=== PATIENT | male | born 1945 | race Asian ===

== ENCOUNTER 2021-11-24 11:24 | Inpatient (IN) | payer MEDICARE, SELFPAY ==
[2021-11-24] VITALS (10 sets, daily range): BP systolic 104–152
[~2021-11-24] VITALS: Ht 165.1 cm; Wt 62.7 kg
[2021-11-24] MEDS ORDERED: NACL 0.9% 1,000 ML IV ONE ×2 (12:00→13:30)
[2021-11-24 12:39] LABS: BASOPHILS % (AUTO) 0.1 % (0.0-2.0); LYMPHOCYTES # (AUTO) 0.7 K/uL (1.0-5.5); LYMPHOCYTES % (AUTO) 3.1 % (20.5-51.5); MEAN CORPUSCULAR HEMOGLOBIN 30 pg (27-31); MEAN CORPUSCULAR HGB CONC 31 % (32-36); MEAN CORPUSCULAR VOLUME 98 fL (79.0-98.0); MONOCYTES # (AUTO) 1.4 K/uL (0.0-1.0); MONOCYTES % (AUTO) 6.3 % (1.7-9.3); NEUTROPHILS # (AUTO) 19.9 K/uL (1.8-7.7); NEUTROPHILS % (AUTO) 90.5 % (40.0-70.0); PLATELET COUNT (AUTO) 199 K/uL (130-430); RED CELL DISTRIBUTION WIDTH 14.7 % (9.0-15.0)
[2021-11-24 12:56] LABS: ANION GAP 15 (5-15); CALCIUM 8.6 mg/dL (8.4-11.0); CHLORIDE 109 mmol/L (98-107); GLUCOSE 310 mg/dL (70-99); POTASSIUM 4.7 mmol/L (3.5-5.1); SODIUM SERUM 145 mmol/L (136-145); UREA NITROGEN, BLOOD 92 mg/dL (8-21)
[2021-11-24 12:59] LABS: BILIRUBIN,URINE NEGATIVE (NEGATIVE); CLARITY/URINE CLEAR (CLEAR); COLOR,URINE YELLOW (YELLOW); GLUCOSE,URINE 2+ (NEGATIVE); KETONES,URINE NEGATIVE (NEGATIVE); LEUKOCYTE ESTERASE ,URINE 3+ (NEGATIVE); NITRITE, URINE POSITIVE (NEGATIVE); PH,URINE 6.5 (5.0-8.0); PROTEIN URINE NEGATIVE (NEGATIVE); UROBILINOGEN,URINE 0.2 (0.2-1.0)
[2021-11-24 13:00] LABS: HEMATOCRIT 16.6 % (36-54); HEMOGLOBIN 5.1 g/dL (14.0-18.0); INR 1.2 (0.80-1.20); PROTHROMBIN TIME 12.7 SECS (9.5-12.5)
[2021-11-24 13:05] LABS: ALANINE AMINOTRANSFERASE 19 U/L (12-78); ALBUMIN 2.9 g/dL (3.4-4.8); ASPARTATE AMINOTRANSFERASE 13 U/L (10-37); TOTAL BILIRUBIN 0.2 mg/dL (0.0-1.0)
[2021-11-24 13:29] LABS: BLOOD, URINE TRACE (NEGATIVE)
[2021-11-24 13:34] LABS: BACTERIA,URINE FEW /HPF (None Seen)
[2021-11-24] MEDS ORDERED: PANTOPRAZOLE SODIUM 80 MG in NS 100 ML IV ONE (14:00)
[2021-11-24] MEDS ORDERED: PANTOPRAZOLE SODIUM 40 MG in NS 50 ML IV ONE (14:00)
[2021-11-24] MEDS ORDERED: PIPERACILLIN/TAZO 3.375 GM in NS 50 ML IV ONE (14:15)
[2021-11-24] MEDS ORDERED: 0.45% NS 500 ML IV ONE (17:15)
[2021-11-24] MEDS ORDERED: DEXTROSE 50% JECT 50 ML DISP.SYRIN IVP PRN (17:15)
[2021-11-24] MEDS ORDERED: DILTIAZEM HCL 30 MG TABLET PO ONE (17:15)
[2021-11-24] MEDS ORDERED: INSULIN REGULAR, HUMAN 100 UNITS/ML, 10 ML VIAL (humuLIN R) SUBCUT PRN (17:15)
[2021-11-24 18:03] LABS: TOTAL IRON BIND. CAPACITY 307 ug/dL (250-450)
[2021-11-24] MEDS: PIPERACILLIN/TAZO 2.25G/DEX-IS 50 ML IV SCH (18:11)
[2021-11-24] MEDS: SUCRALFATE 1 GM/10 ML UDC GT SCH (21:00)
[2021-11-24] MEDS ORDERED: PANTOPRAZOLE SODIUM 40 MG/VIAL (PROTONIX) ONE ×2 (21:45→22:32)
[2021-11-24] MEDS: PANTOPRAZOLE SODIUM 40 MG in NS 50 ML IV SCH (23:00)
[2021-11-25] VITALS (21 sets, daily range): BP systolic 102–128
[2021-11-25] MEDS: PIPERACILLIN/TAZO 2.25G/DEX-IS 50 ML IV SCH ×5 (01:12→23:32)
[2021-11-25] MEDS: PANTOPRAZOLE SODIUM 40 MG in NS 50 ML IV SCH ×5 (01:35→21:23)
[2021-11-25] MEDS: DILTIAZEM HCL 30 MG TABLET PO SCH ×5 (05:39→23:32)
[2021-11-25] MEDS: SUCRALFATE 1 GM/10 ML UDC GT SCH ×4 (06:06→20:08)
[2021-11-25] MEDS ORDERED: NS 500 ML IV ONE (08:30)
[2021-11-25] MEDS: NACL 0.9% 1,000 ML IV SCH ×2 (09:14→18:54)
[2021-11-25 09:51] LABS: BASOPHILS % (AUTO) 0.2 % (0.0-2.0); LYMPHOCYTES # (AUTO) 1.2 K/uL (1.0-5.5); LYMPHOCYTES % (AUTO) 6.9 % (20.5-51.5); MEAN CORPUSCULAR HEMOGLOBIN 31 pg (27-31); MEAN CORPUSCULAR HGB CONC 32 % (32-36); MEAN CORPUSCULAR VOLUME 95 fL (79.0-98.0); MONOCYTES # (AUTO) 1.5 K/uL (0.0-1.0); MONOCYTES % (AUTO) 8.8 % (1.7-9.3); NEUTROPHILS # (AUTO) 14.3 K/uL (1.8-7.7); NEUTROPHILS % (AUTO) 84.1 % (40.0-70.0); PLATELET COUNT (AUTO) 131 K/uL (130-430); RED BLOOD CELL COUNT(AUTO) 2.03 MIL/uL (4.2-6.2); RED CELL DISTRIBUTION WIDTH 13.9 % (9.0-15.0)
[2021-11-25 09:58] LABS: ALANINE AMINOTRANSFERASE 23 U/L (12-78); ALBUMIN 2.7 g/dL (3.4-4.8); ANION GAP 10 (5-15); ASPARTATE AMINOTRANSFERASE 17 U/L (10-37); CALCIUM 7.9 mg/dL (8.4-11.0); CHLORIDE 115 mmol/L (98-107); CREATININE 1.56 mg/dL (0.55-1.30); FREE T4 (FREE THYROXINE) 0.9 ng/dl (0.8-1.5); GLUCOSE 136 mg/dL (70-99); PHOSPHORUS 2.6 mg/dL (2.7-4.5); POTASSIUM 3.8 mmol/L (3.5-5.1); SODIUM SERUM 151 mmol/L (136-145); THYROID STIMULATING HORMONE 2.58 uIu/mL (0.36-3.74); TOTAL BILIRUBIN 0.5 mg/dL (0.0-1.0); UREA NITROGEN, BLOOD 61 mg/dL (8-21)
[2021-11-25 11:24] LABS: HEMOGLOBIN 6.3 g/dL (14.0-18.0)
[2021-11-25 11:25] LABS: HEMATOCRIT 19.4 % (36-54)
[2021-11-25] MEDS ORDERED: IPRATROPIUM/ALBUTEROL SULFATE 3 ML AMPUL.NEB (DUONEB) ONE (13:08)
[2021-11-25] MEDS ORDERED: D5W 500 ML IV ONE (14:30)
[2021-11-25] MEDS ORDERED: LOPERAMIDE HCL 1 MG/7.5 ML LIQUID UDC GT ONE (15:00)
[2021-11-25] MEDS: IPRATROPIUM/ALBUTEROL SULFATE 3 ML AMPUL.NEB (DUONEB) INH SCH ×4 (15:00→23:00)
[2021-11-25] MEDS ORDERED: LOPERAMIDE HCL 1 MG/7.5 ML LIQUID UDC GT PRN (15:00)
[2021-11-25] MEDS ORDERED: ERGOCALCIFEROL 8000 UNITS/ML ORAL SOLUTION, 60 ML BOTTLE PO ONE (15:00)
[2021-11-25] MEDS ORDERED: LOPERAMIDE HCL 2 MG CAPSULE GT ONE (15:15)
[2021-11-25] MEDS ORDERED: LOPERAMIDE HCL 2 MG CAPSULE GT PRN (15:15)
[2021-11-25] MEDS ORDERED: LOPERAMIDE HCL 2 MG CAPSULE PO ONE (15:15)
[2021-11-25] MEDS ORDERED: CALCIUM GLUCONATE 1 GM in NS 100 ML IV ONE (15:30)
[2021-11-25] MEDS ORDERED: DIPHENHYDRAMINE INJ 50 MG/ML VIAL ONE (16:39)
[2021-11-25] MEDS ORDERED: QUEtiapine FUMARATE 25 MG TABLET GT ONE (16:45)
[2021-11-25] MEDS ORDERED: DIPHENHYDRAMINE INJ 50 MG/ML VIAL IVP PRN (16:45)
[2021-11-25] MEDS: QUEtiapine FUMARATE 25 MG TABLET GT SCH (20:08)
[2021-11-26] VITALS (19 sets, daily range): BP systolic 100–147
[2021-11-26] MEDS: PANTOPRAZOLE SODIUM 40 MG in NS 50 ML IV SCH (02:07)
[2021-11-26] MEDS: IPRATROPIUM/ALBUTEROL SULFATE 3 ML AMPUL.NEB (DUONEB) INH SCH ×6 (04:10→22:49)
[2021-11-26 04:54] LABS: BASOPHILS % (AUTO) 0.2 % (0.0-2.0); EOSINOPHILS # (AUTO) 0.1 K/uL (0.0-0.4); EOSINOPHILS % (AUTO) 0.8 % (0.0-4.0); HEMATOCRIT 27.4 % (36-54); HEMOGLOBIN 9.2 g/dL (14.0-18.0); LYMPHOCYTES # (AUTO) 0.5 K/uL (1.0-5.5); LYMPHOCYTES % (AUTO) 4.8 % (20.5-51.5); MEAN CORPUSCULAR HEMOGLOBIN 31 pg (27-31); MEAN CORPUSCULAR HGB CONC 33 % (32-36); MEAN CORPUSCULAR VOLUME 91 fL (79.0-98.0); MONOCYTES # (AUTO) 0.7 K/uL (0.0-1.0); MONOCYTES % (AUTO) 6.5 % (1.7-9.3); NEUTROPHILS % (AUTO) 87.7 % (40.0-70.0); PLATELET COUNT (AUTO) 116 K/uL (130-430); RED BLOOD CELL COUNT(AUTO) 3.01 MIL/uL (4.2-6.2); RED CELL DISTRIBUTION WIDTH 14.5 % (9.0-15.0); WHITE BLOOD COUNT (AUTO) 10.3 K/uL (4.8-10.8)
[2021-11-26] MEDS: PIPERACILLIN/TAZO 2.25G/DEX-IS 50 ML IV SCH ×3 (05:24→17:44)
[2021-11-26 05:29] LABS: ALANINE AMINOTRANSFERASE 23 U/L (12-78); ALBUMIN 2.4 g/dL (3.4-4.8); ANION GAP 10 (5-15); ASPARTATE AMINOTRANSFERASE 26 U/L (10-37); CALCIUM 7.6 mg/dL (8.4-11.0); CHLORIDE 116 mmol/L (98-107); CREATININE 1.23 mg/dL (0.55-1.30); GLUCOSE 128 mg/dL (70-99); POTASSIUM 3.7 mmol/L (3.5-5.1); SODIUM SERUM 149 mmol/L (136-145); TOTAL BILIRUBIN 0.7 mg/dL (0.0-1.0); UREA NITROGEN, BLOOD 35 mg/dL (8-21)
[2021-11-26] MEDS: DILTIAZEM HCL 30 MG TABLET PO SCH ×3 (05:30→17:45)
[2021-11-26] MEDS: NACL 0.9% 1,000 ML IV SCH ×2 (05:40→14:53)
[2021-11-26] MEDS: SUCRALFATE 1 GM/10 ML UDC GT SCH ×4 (05:40→20:31)
[2021-11-26] MEDS ORDERED: MIDAZOLAM HCL 5 MG/5 ML VIAL ONE (09:47)
[2021-11-26] MEDS ORDERED: fentaNYL CITRATE/PF 100 MCG/2 ML AMP ONE (09:47)
[2021-11-26] MEDS ORDERED: fentaNYL CITRATE/PF 100 MCG/2 ML AMP IVP ONE (09:56)
[2021-11-26] MEDS ORDERED: MIDAZOLAM HCL 5 MG/5 ML VIAL IVP ONE (09:56)
[2021-11-26] MEDS ORDERED: SIMETHICONE 80 MG TAB.CHEW PO ONE (09:56)
[2021-11-26] MEDS: QUEtiapine FUMARATE 25 MG TABLET GT SCH ×2 (10:16→20:31)
[2021-11-26] MEDS: ERGOCALCIFEROL 8000 UNITS/ML ORAL SOLUTION, 60 ML BOTTLE PO SCH (10:17)
[2021-11-26] MEDS: DILTIAZEM HCL 30 MG TABLET GT SCH (18:35)
[2021-11-26] MEDS: KCL 20 mEq in D5W 1000 mL 1,000 ML IV SCH (18:39)
[2021-11-26] MEDS: PANTOPRAZOLE SODIUM 40 MG/VIAL (PROTONIX) IVP SCH (20:31)
[2021-11-27 00:50] VITALS: BP_SYST 144
[2021-11-27] MEDS: PIPERACILLIN/TAZO 2.25G/DEX-IS 50 ML IV SCH ×3 (02:01→11:05)
[2021-11-27] MEDS: DILTIAZEM HCL 30 MG TABLET GT SCH ×3 (02:56→17:43)
[2021-11-27] MEDS: IPRATROPIUM/ALBUTEROL SULFATE 3 ML AMPUL.NEB (DUONEB) INH SCH ×5 (03:22→23:11)
[2021-11-27] MEDS: SUCRALFATE 1 GM/10 ML UDC GT SCH ×4 (06:01→22:33)
[2021-11-27 07:39] LABS: ALANINE AMINOTRANSFERASE 21 U/L (12-78); ALBUMIN 2.6 g/dL (3.4-4.8); ANION GAP 11 (5-15); ASPARTATE AMINOTRANSFERASE 28 U/L (10-37); BASOPHILS % (AUTO) 0.1 % (0.0-2.0); CALCIUM 7.9 mg/dL (8.4-11.0); CHLORIDE 112 mmol/L (98-107); CREATININE 1.31 mg/dL (0.55-1.30); EOSINOPHILS # (AUTO) 0.1 K/uL (0.0-0.4); EOSINOPHILS % (AUTO) 1.6 % (0.0-4.0); GLUCOSE 119 mg/dL (70-99); HEMATOCRIT 30.4 % (36-54); HEMOGLOBIN 10.1 g/dL (14.0-18.0); LYMPHOCYTES # (AUTO) 0.5 K/uL (1.0-5.5); LYMPHOCYTES % (AUTO) 5.2 % (20.5-51.5); MEAN CORPUSCULAR HEMOGLOBIN 31 pg (27-31); MEAN CORPUSCULAR HGB CONC 33 % (32-36); MONOCYTES # (AUTO) 0.6 K/uL (0.0-1.0); MONOCYTES % (AUTO) 6.7 % (1.7-9.3); NEUTROPHILS # (AUTO) 8.3 K/uL (1.8-7.7); NEUTROPHILS % (AUTO) 86.4 % (40.0-70.0); PLATELET COUNT (AUTO) 121 K/uL (130-430); POTASSIUM 3.8 mmol/L (3.5-5.1); RED BLOOD CELL COUNT(AUTO) 3.29 MIL/uL (4.2-6.2); RED CELL DISTRIBUTION WIDTH 15.4 % (9.0-15.0); SODIUM SERUM 147 mmol/L (136-145); TOTAL BILIRUBIN 0.8 mg/dL (0.0-1.0); UREA NITROGEN, BLOOD 21 mg/dL (8-21); WHITE BLOOD COUNT (AUTO) 9.6 K/uL (4.8-10.8)
[2021-11-27 07:56] VITALS: BP_SYST 121
[2021-11-27] MEDS: QUEtiapine FUMARATE 25 MG TABLET GT SCH ×2 (08:34→21:00)
[2021-11-27] MEDS: PANTOPRAZOLE SODIUM 40 MG/VIAL (PROTONIX) IVP SCH (08:34)
[2021-11-27] MEDS: ERGOCALCIFEROL 8000 UNITS/ML ORAL SOLUTION, 60 ML BOTTLE PO SCH (08:35)
[2021-11-27 08:58] LABS: MEAN CORPUSCULAR VOLUME 93 fL (79.0-98.0)
[2021-11-27 11:09] VITALS: BP_SYST 106
[2021-11-27] MEDS: cefTRIAXone 1 GM in D5W 50 ML IV SCH (16:14)
[2021-11-27] MEDS: KCL 20 mEq in D5W 1000 mL 1,000 ML IV SCH (16:15)
[2021-11-27 16:30] VITALS: BP_SYST 109
[2021-11-27] MEDS ORDERED: IPRA3AMP9 INH (17:13)
[2021-11-27] MEDS ORDERED: CAR30 GT (17:13)
[2021-11-27] MEDS ORDERED: CEPH125S PO (17:13)
[2021-11-27] MEDS ORDERED: SUCR1ORA4 GT (17:13)
[2021-11-27] MEDS ORDERED: PANT40SU2 GT (17:18)
[2021-11-27] MEDS: SOD FERRIC GLUC COMPLEX/SUC 125 MG in NS 100 ML IV SCH (18:08)
[2021-11-27] MEDS ORDERED: PANTOPRAZOLE GRANULES PACKET 40 MG GT SCH (21:00)
[2021-11-27] MEDS: LANSOPRAZOLE 30 MG CAPSULE.DR GT SCH (22:33)
[2021-11-28 01:00] VITALS: BP_SYST 129
[2021-11-28] MEDS: DILTIAZEM HCL 30 MG TABLET GT SCH ×3 (02:15→18:03)
[2021-11-28] MEDS: KCL 20 mEq in D5W 1000 mL 1,000 ML IV SCH (06:50)
[2021-11-28 06:53] LABS: BASOPHILS % (AUTO) 0.2 % (0.0-2.0); EOSINOPHILS # (AUTO) 0.3 K/uL (0.0-0.4); EOSINOPHILS % (AUTO) 2.9 % (0.0-4.0); HEMATOCRIT 32.3 % (36-54); HEMOGLOBIN 10.7 g/dL (14.0-18.0); LYMPHOCYTES # (AUTO) 0.5 K/uL (1.0-5.5); LYMPHOCYTES % (AUTO) 5.4 % (20.5-51.5); MEAN CORPUSCULAR HEMOGLOBIN 31 pg (27-31); MEAN CORPUSCULAR HGB CONC 33 % (32-36); MEAN CORPUSCULAR VOLUME 93 fL (79.0-98.0); MONOCYTES # (AUTO) 0.5 K/uL (0.0-1.0); MONOCYTES % (AUTO) 5.9 % (1.7-9.3); NEUTROPHILS # (AUTO) 7.9 K/uL (1.8-7.7); NEUTROPHILS % (AUTO) 85.6 % (40.0-70.0); PLATELET COUNT (AUTO) 135 K/uL (130-430); RED BLOOD CELL COUNT(AUTO) 3.49 MIL/uL (4.2-6.2); RED CELL DISTRIBUTION WIDTH 15.1 % (9.0-15.0); WHITE BLOOD COUNT (AUTO) 9.3 K/uL (4.8-10.8)
[2021-11-28 07:29] LABS: ALANINE AMINOTRANSFERASE 19 U/L (12-78); ALBUMIN 2.7 g/dL (3.4-4.8); ANION GAP 10 (5-15); ASPARTATE AMINOTRANSFERASE 30 U/L (10-37); CALCIUM 8.1 mg/dL (8.4-11.0); CHLORIDE 109 mmol/L (98-107); CREATININE 1.25 mg/dL (0.55-1.30); GLUCOSE 97 mg/dL (70-99); POTASSIUM 3.4 mmol/L (3.5-5.1); SODIUM SERUM 145 mmol/L (136-145); TOTAL BILIRUBIN 0.5 mg/dL (0.0-1.0); UREA NITROGEN, BLOOD 15 mg/dL (8-21)
[2021-11-28] MEDS: IPRATROPIUM/ALBUTEROL SULFATE 3 ML AMPUL.NEB (DUONEB) INH SCH ×2 (07:56→15:23)
[2021-11-28] MEDS: SUCRALFATE 1 GM/10 ML UDC GT SCH ×4 (08:32→23:56)
[2021-11-28] MEDS: QUEtiapine FUMARATE 25 MG TABLET GT SCH ×2 (08:32→23:57)
[2021-11-28] MEDS: LANSOPRAZOLE 30 MG CAPSULE.DR GT SCH ×2 (08:32→23:57)
[2021-11-28] MEDS: ERGOCALCIFEROL 8000 UNITS/ML ORAL SOLUTION, 60 ML BOTTLE PO SCH (08:33)
[2021-11-28] MEDS ORDERED: FOLIC ACID 1 MG TABLET GT ONE (11:15)
[2021-11-28 12:35] VITALS: BP_SYST 127
[2021-11-28] MEDS ORDERED: POTASSIUM CHLORIDE 20 MEQ/PKT PACKET GT ONE (13:30)
[2021-11-28 15:25] VITALS: BP_SYST 127
[2021-11-28 16:00] VITALS: BP_SYST 119
[2021-11-28] MEDS: cefTRIAXone 1 GM in D5W 50 ML IV SCH (16:22)
[2021-11-28] MEDS: SOD FERRIC GLUC COMPLEX/SUC 125 MG in NS 100 ML IV SCH (18:04)
[2021-11-28] MEDS ORDERED: METR-154 GT (18:56)
[2021-11-28] MEDS ORDERED: DOXY100C GT (18:58)
[2021-11-28 20:00] VITALS: BP_SYST 122
[2021-11-28] MEDS: POTASSIUM CHLORIDE 20 MEQ/PKT PACKET PO SCH (23:57)
[2021-11-29 01:26] VITALS: BP_SYST 128
[2021-11-29] MEDS: IPRATROPIUM/ALBUTEROL SULFATE 3 ML AMPUL.NEB (DUONEB) INH SCH ×2 (01:46→08:03)
[2021-11-29] MEDS: DILTIAZEM HCL 30 MG TABLET GT SCH ×2 (05:04→10:12)
[2021-11-29] MEDS: SUCRALFATE 1 GM/10 ML UDC GT SCH ×2 (08:01→11:13)
[2021-11-29 08:12] LABS: BASOPHILS % (AUTO) 0.1 % (0.0-2.0); EOSINOPHILS # (AUTO) 0.2 K/uL (0.0-0.4); EOSINOPHILS % (AUTO) 2.9 % (0.0-4.0); HEMATOCRIT 34.5 % (36-54); HEMOGLOBIN 11.3 g/dL (14.0-18.0); LYMPHOCYTES # (AUTO) 0.6 K/uL (1.0-5.5); LYMPHOCYTES % (AUTO) 9.8 % (20.5-51.5); MEAN CORPUSCULAR HEMOGLOBIN 30 pg (27-31); MEAN CORPUSCULAR HGB CONC 33 % (32-36); MEAN CORPUSCULAR VOLUME 92 fL (79.0-98.0); MONOCYTES # (AUTO) 0.4 K/uL (0.0-1.0); MONOCYTES % (AUTO) 6.4 % (1.7-9.3); NEUTROPHILS # (AUTO) 5.2 K/uL (1.8-7.7); NEUTROPHILS % (AUTO) 80.8 % (40.0-70.0); PLATELET COUNT (AUTO) 137 K/uL (130-430); RED BLOOD CELL COUNT(AUTO) 3.74 MIL/uL (4.2-6.2); RED CELL DISTRIBUTION WIDTH 14.8 % (9.0-15.0); WHITE BLOOD COUNT (AUTO) 6.4 K/uL (4.8-10.8)
[2021-11-29 08:30] LABS: ANION GAP 11 (5-15); CALCIUM 8.7 mg/dL (8.4-11.0); CHLORIDE 107 mmol/L (98-107); CREATININE 1.23 mg/dL (0.55-1.30); GLUCOSE 86 mg/dL (70-99); POTASSIUM 3.9 mmol/L (3.5-5.1); SODIUM SERUM 142 mmol/L (136-145); UREA NITROGEN, BLOOD 16 mg/dL (8-21)
[2021-11-29] MEDS ORDERED: DOXYCYCLINE HYCLATE 100 MG CAPSULE PO SCH (09:00)
[2021-11-29] MEDS ORDERED: FOLIC ACID 1 MG TABLET GT SCH (09:00)
[2021-11-29] MEDS: LANSOPRAZOLE 30 MG CAPSULE.DR GT SCH (09:00)
[2021-11-29] MEDS ORDERED: metroNIDAZOLE 500 MG TABLET PO SCH (09:00)
[2021-11-29] MEDS ORDERED: BISMUTH SUBSALICYLATE 240 ML BOTTLE PO SCH (09:00)
[2021-11-29] MEDS ORDERED: PANTOPRAZOLE SODIUM 40 MG TAB PO SCH (09:00)
[2021-11-29 09:30] VITALS: BP_SYST 163
[2021-11-29] MEDS: QUEtiapine FUMARATE 25 MG TABLET GT SCH (09:59)
[2021-11-29] MEDS: POTASSIUM CHLORIDE 20 MEQ/PKT PACKET PO SCH (09:59)
[2021-11-29] MEDS: ERGOCALCIFEROL 8000 UNITS/ML ORAL SOLUTION, 60 ML BOTTLE PO SCH (10:00)
[2021-11-29 11:50] VITALS: BP_SYST 125
== END 2021-11-29 13:15 | disposition home health service (06) | DRG 871 ==
LOC: SED 11:24 → STU 14:01 → SIC 16:01 → STU 11-26 21:55 → SMU 11-27 14:50
PROVIDERS: ADMIT Internal Medicine; ATTEND Internal Medicine
PROC: 30233N1 Transfusion of Nonautologous Red Blood Cells into Peripheral Vein, Percutaneous Approach (ICD-10-PCS; 2021-11-24)
PROC: 30233K1 Transfusion of Nonautologous Frozen Plasma into Peripheral Vein, Percutaneous Approach (ICD-10-PCS; 2021-11-25)
PROC: 0DB78ZX Excision of Stomach, Pylorus, Via Natural or Artificial Opening Endoscopic, Diagnostic (ICD-10-PCS; principal; 2021-11-26 11:30)
DX: A41.9 Sepsis, unspecified organism (principal); R65.21 Severe sepsis with septic shock; R57.1 Hypovolemic shock; E43 Unspecified severe protein-calorie malnutrition; K26.4 Chronic or unspecified duodenal ulcer with hemorrhage; K29.71 Gastritis, unspecified, with bleeding; D62 Acute posthemorrhagic anemia; N17.9 Acute kidney failure, unspecified; I48.20 Chronic atrial fibrillation, unspecified; E87.0 Hyperosmolality and hypernatremia; N39.0 Urinary tract infection, site not specified; R47.01 Aphasia; C76.0 Malignant neoplasm of head, face and neck; E11.9 Type 2 diabetes mellitus without complications; J45.909 Unspecified asthma, uncomplicated; E83.39 Other disorders of phosphorus metabolism; Z20.822 Contact with and (suspected) exposure to COVID-19; E83.51 Hypocalcemia; K31.9 Disease of stomach and duodenum, unspecified; Z86.73 Personal history of transient ischemic attack (TIA), and cerebral infarction without residual deficits; Z87.891 Personal history of nicotine dependence; Z93.1 Gastrostomy status; Z79.01 Long term (current) use of anticoagulants; Z68.23 Body mass index [BMI] 23.0-23.9, adult
CPT/HCPCS: 36415; 36430; 43239; 71045; 80048; 80053; 81000; 82272; 82607; 82728; 82746; 82962; 83540; 83550; 83605; 83880; 84100; 84439; 84443; 84484; 85025; 85610-TC; 85730-TC; 86886; 86900; 86901; 86920; 87040; 87086; 88305; 88312; 88313; 93005; 93306; 94640; 94760; 96360; 99285; C9113; G0378; J0610; J0696; J1200; J2250; J2543; J2916; J3010; J3480; J7060; P9021; P9059

== ENCOUNTER 2022-06-23 04:22 | Emergency (ER) | payer MEDICARE ==
[~2022-06-23] VITALS: Ht 162.6 cm; Wt 49.9 kg
[~2022-06-23 04:22] MED LIST: CAR30 GT; CEPH125S PO; DOXY100C GT; IPRA3AMP9 INH; METR-154 GT; PANT40SU2 GT; SUCR1ORA4 GT
[2022-06-23 05:29] VITALS: BP_SYST 143
[2022-06-23] MEDS ORDERED: PANTOPRAZOLE SODIUM 80 MG in NS 100 ML IV ONE (05:45)
[2022-06-23 05:46] LABS: ANION GAP 6 (5-15); CALCIUM 9.3 mg/dL (8.4-11.0); CHLORIDE 107 mmol/L (98-107); CREATININE 1.72 mg/dL (0.55-1.30); GLUCOSE 105 mg/dL (70-99); POTASSIUM 4.3 mmol/L (3.5-5.1); UREA NITROGEN, BLOOD 33 mg/dL (8-21)
[2022-06-23] MEDS ORDERED: PANTOPRAZOLE SODIUM 40 MG/VIAL (PROTONIX) ONE (05:53)
[2022-06-23 05:55] LABS: ALANINE AMINOTRANSFERASE 41 U/L (12-78); ALBUMIN 3.6 g/dL (3.4-4.8); ASPARTATE AMINOTRANSFERASE 31 U/L (10-37); TOTAL BILIRUBIN 0.8 mg/dL (0.0-1.0)
[2022-06-23 05:56] LABS: BASOPHILS # (AUTO) 0.1 K/uL (0.0-0.2); BASOPHILS % (AUTO) 2.4 % (0.0-2.0); EOSINOPHILS # (AUTO) 0.4 K/uL (0.0-0.4); EOSINOPHILS % (AUTO) 6.9 % (0.0-4.0); HEMATOCRIT 41.1 % (36-54); LYMPHOCYTES # (AUTO) 0.8 K/uL (1.0-5.5); LYMPHOCYTES % (AUTO) 14.7 % (20.5-51.5); MEAN CORPUSCULAR VOLUME 92 fL (79.0-98.0); MONOCYTES # (AUTO) 0.3 K/uL (0.0-1.0); MONOCYTES % (AUTO) 6.8 % (1.7-9.3); NEUTROPHILS # (AUTO) 3.5 K/uL (1.8-7.7); NEUTROPHILS % (AUTO) 69.2 % (40.0-70.0); PLATELET COUNT (AUTO) 133 K/uL (130-430); RED BLOOD CELL COUNT(AUTO) 4.45 MIL/uL (4.2-6.2); RED CELL DISTRIBUTION WIDTH 14.4 % (9.0-15.0); WHITE BLOOD COUNT (AUTO) 5.1 K/uL (4.8-10.8)
[2022-06-23 06:07] LABS: INR 1.1 (0.80-1.20); PROTHROMBIN TIME 11.1 SECS (9.5-12.5)
[2022-06-23] MEDS ORDERED: NS 500 ML IV ONE (06:30)
[2022-06-23] MEDS ORDERED: NACL 0.9% 1,000 ML IV ONE ×2 (07:15)
[2022-06-23 08:31] VITALS: BP_SYST 168
== END 2022-06-23 08:33 | disposition home or self-care (01) ==
LOC: SED 04:22
DX: N17.9 Acute kidney failure, unspecified (principal); Z79.01 Long term (current) use of anticoagulants; Z79.899 Other long term (current) drug therapy
CPT/HCPCS: 99284; 96365; 71045; 96361; 80053; 85025; 85610; 85730; 84484; 36415; C9113; J7030

== ENCOUNTER 2023-05-07 13:57 | Emergency (ER) | payer MEDICARE ==
[~2023-05-07] VITALS: Ht 170.2 cm; Wt 72.6 kg
[2023-05-07 14:00] VITALS: BP_SYST 114; PULSE 105; RESP 19; TEMP 98.6; O2SAT 97
[2023-05-07] MEDS ORDERED: NS 1000 ML IV.SOLN IV ONE (14:30)
[2023-05-07] MEDS ORDERED: VANCOMYCIN HCL 1,000 MG in NS 250 ML IV ONE (14:45)
[2023-05-07] MEDS ORDERED: PIPERACILLIN/TAZOBACTAM 2.25 GM in NS 50 ML IV ONE (14:45)
[2023-05-07 15:12] LABS: BASOPHILS % (AUTO) 0.1 % (0.0-2.0); EOSINOPHILS % (AUTO) 0.2 % (0.0-4.0); HEMOGLOBIN 11.4 g/dL (14.0-18.0); LYMPHOCYTES # (AUTO) 0.5 K/uL (1.0-5.5); LYMPHOCYTES % (AUTO) 4.7 % (20.5-51.5); MEAN CORPUSCULAR HEMOGLOBIN 29 pg (27-31); MEAN CORPUSCULAR HGB CONC 32 % (32-36); MEAN CORPUSCULAR VOLUME 92 fL (79.0-98.0); MONOCYTES # (AUTO) 0.5 K/uL (0.0-1.0); MONOCYTES % (AUTO) 5.3 % (1.7-9.3); NEUTROPHILS # (AUTO) 8.6 K/uL (1.8-7.7); NEUTROPHILS % (AUTO) 89.7 % (40.0-70.0); PLATELET COUNT (AUTO) 169 K/uL (130-430); RED BLOOD CELL COUNT(AUTO) 3.92 MIL/uL (4.2-6.2); RED CELL DISTRIBUTION WIDTH 13.8 % (9.0-15.0); WHITE BLOOD COUNT (AUTO) 9.6 K/uL (4.8-10.8)
[2023-05-07 15:23] LABS: ALANINE AMINOTRANSFERASE 17 U/L (12-78); ALBUMIN 2.2 g/dL (3.4-4.8); ANION GAP 7 (5-15); ASPARTATE AMINOTRANSFERASE 26 U/L (10-37); CALCIUM 7.8 mg/dL (8.4-11.0); CHLORIDE 108 mmol/L (98-107); CREATININE 2.31 mg/dL (0.55-1.30); GLUCOSE 165 mg/dL (74-106); TOTAL BILIRUBIN 0.2 mg/dL (0.0-1.0); UREA NITROGEN, BLOOD 44 mg/dL (8-21)
[2023-05-07 15:25] LABS: LIPASE 436 U/L (73-393)
[2023-05-07 15:38] LABS: INR 1.1 (0.80-1.20); PROTHROMBIN TIME 11.3 SECS (9.5-12.5)
[2023-05-07] MEDS ORDERED: NACL 0.9% 1,000 ML IV ONE (16:15)
[2023-05-07 17:47] LABS: BILIRUBIN,URINE NEGATIVE (NEGATIVE); BLOOD, URINE 3+ (NEGATIVE); CLARITY/URINE SL CLOUDY (CLEAR); GLUCOSE,URINE NEGATIVE (NEGATIVE); KETONES,URINE NEGATIVE (NEGATIVE); LEUKOCYTE ESTERASE ,URINE 1+ (NEGATIVE); NITRITE, URINE NEGATIVE (NEGATIVE); PROTEIN URINE TRACE (NEGATIVE); UROBILINOGEN,URINE 0.2 (0.2-1.0)
[2023-05-07 17:48] LABS: COLOR,URINE YELLOW (YELLOW)
[2023-05-07 18:00] LABS: BACTERIA,URINE FEW /HPF (None Seen); RBC,URINE >100 /HPF (0-3)
[2023-05-07 18:01] LABS: MUCUS,URINE None Seen /LPF (None Seen)
[2023-05-07] MEDS ORDERED: VANCOMYCIN HCL 1000 MG/VIAL IV ONE (18:07)
[2023-05-07] MEDS ORDERED: PIPERACILLIN/TAZOBACTAM 2.25 GM VIAL IV ONE (18:08)
[2023-05-08 00:40] VITALS: BP_SYST 137; PULSE 108; RESP 17; TEMP 97.7; O2SAT 98
== END 2023-05-08 00:30 | disposition short-term general hospital (02) ==
LOC: SED 13:57
DX: E86.0 Dehydration (principal); I95.9 Hypotension, unspecified; R65.20 Severe sepsis without septic shock; N17.9 Acute kidney failure, unspecified; I10 Essential (primary) hypertension; Z79.899 Other long term (current) drug therapy; Z20.822 Contact with and (suspected) exposure to COVID-19
CPT/HCPCS: 99291; 74176; 96365; 71045; 96361; 87426; 80053; 81000; 82962; 83690; 85025; 85610; 85730; 87040; 87086; 84484; 36415; 93005; 76376; 96368; 83605; 87804 ×2; J2543; J3370; J7030

== ENCOUNTER 2024-05-29 12:10 | Inpatient (IN) | payer MEDICARE ==
[~2024-05-29] VITALS: Ht 172.7 cm; Wt 71.2 kg
[2024-05-29 12:10] VITALS: BP_SYST 140; PULSE 154; RESP 24; TEMP 98; O2SAT 96; O2SAT 99
[2024-05-29] MEDS: IPRATROPIUM/ALBUTEROL SULFATE 3 ML AMPUL.NEB (DUONEB) INH ONE (12:28)
[2024-05-29] MEDS: dilTIAZem HCL IVP 5 MG/ML VIAL IVP ONE ×2 (12:41→16:27)
[2024-05-29] MEDS: DILTIAZEM HCL 60 MG TABLET PO ONE (12:55)
[2024-05-29 12:59] LABS: BASOPHILS % (AUTO) 0.3 % (0.0-2.0); EOSINOPHILS # (AUTO) 0.1 K/uL (0.0-0.4); EOSINOPHILS % (AUTO) 1.1 % (0.0-4.0); HEMOGLOBIN 11.5 g/dL (14.0-18.0); LYMPHOCYTES # (AUTO) 1.3 K/uL (1.0-5.5); MONOCYTES # (AUTO) 0.6 K/uL (0.0-1.0); NEUTROPHILS # (AUTO) 3.6 K/uL (1.8-7.7); WHITE BLOOD COUNT (AUTO) 5.6 K/uL (4.8-10.8)
[2024-05-29 13:01] LABS: HEMATOCRIT 35.9 % (36-54); LYMPHOCYTES % (AUTO) 23.4 % (20.5-51.5); MEAN CORPUSCULAR HEMOGLOBIN 31 pg (27-31); MEAN CORPUSCULAR HGB CONC 32 % (32-36); MEAN CORPUSCULAR VOLUME 96 fL (79.0-98.0); MONOCYTES % (AUTO) 10.6 % (1.7-9.3); NEUTROPHILS % (AUTO) 64.6 % (40.0-70.0); PLATELET COUNT (AUTO) 167 K/uL (130-430); RED BLOOD CELL COUNT(AUTO) 3.72 MIL/uL (4.2-6.2); RED CELL DISTRIBUTION WIDTH 15.4 % (9.0-15.0)
[2024-05-29 13:09] LABS: INR 1.1 (0.80-1.20); PROTHROMBIN TIME 11.6 SECS (9.5-12.5)
[2024-05-29 13:17] LABS: ALANINE AMINOTRANSFERASE 18 U/L (12-78); ALBUMIN 3.4 g/dL (3.4-4.8); ANION GAP 5 (5-15); ASPARTATE AMINOTRANSFERASE 18 U/L (10-37); BILIRUBIN,DIRECT 0.1 mg/dL (0.0-0.3); CALCIUM 8.4 mg/dL (8.4-11.0); CARBON DIOXIDE 30 mmol/L (23-29); CHLORIDE 105 mmol/L (98-107); CREATINE KINASE, TOTAL 67 U/L (39-308); CREATININE 2.03 mg/dL (0.55-1.30); GLUCOSE 208 mg/dL (74-106); POTASSIUM 4.4 mmol/L (3.5-5.1); SODIUM SERUM 140 mmol/L (136-145); TOTAL BILIRUBIN 0.3 mg/dL (0.0-1.0); TOTAL PROTEIN, SERUM 7.9 g/dL (6.4-8.3); UREA NITROGEN, BLOOD 36 mg/dL (8-21)
[2024-05-29] MEDS: NACL 0.9% 1,000 ML IV ONE ×2 (16:24→18:20)
[2024-05-29 16:40] VITALS: PULSE 117; O2SAT 98
[2024-05-29] MEDS ORDERED: ONDANSETRON HCL 4 MG/2 ML VIAL IVP PRN (16:45)
[2024-05-29] MEDS: DILTIAZEM HCL 30 MG TABLET GT SCH (16:45)
[2024-05-29] MEDS ORDERED: MORPHINE 2 MG/ML INJ. SYRINGE IVP PRN ×2 (16:45)
[2024-05-29] MEDS ORDERED: MUPIROCIN 2% TOPICAL OINTMENT 22 GM NS PRN (16:45)
[2024-05-29] MEDS ORDERED: MAGNESIUM SULFATE 50 ML IV PRN (16:45)
[2024-05-29] MEDS ORDERED: DOCUSATE SODIUM 100 MG CAPSULE PO PRN (16:45)
[2024-05-29] MEDS ORDERED: POTASSIUM CHLORIDE 20 MEQ TABLET.ER PO PRN (16:45)
[2024-05-29] MEDS ORDERED: ACETAMINOPHEN 325 MG TABLET PO PRN (16:45)
[2024-05-29] MEDS: NS 250 ML IV ONE (18:00)
[2024-05-29] MEDS: IPRATROPIUM/ALBUTEROL SULFATE 3 ML AMPUL.NEB (DUONEB) INH SCH (18:00)
[2024-05-29] MEDS ORDERED: cefTRIAXone 1 GM VIAL ONE (18:15)
[2024-05-29] MEDS: NACL 0.9% 1,000 ML IV SCH (18:19)
[2024-05-29] MEDS: ASPIRIN 81 MG TAB.CHEW PO ONE (18:20)
[2024-05-29] MEDS: cefTRIAXone 1 GM in D5W 50 ML IV SCH (18:20)
[2024-05-29] MEDS: HALOPERIDOL LACTATE 5 MG/ML VIAL IVP ONE (20:25)
[2024-05-29] MEDS: DIPHENHYDRAMINE INJ 50 MG/ML VIAL IVP ONE (20:37)
[2024-05-29] MEDS: HEPARIN SODIUM,PORCINE 5,000 UNITS/ML VIAL SUBCUT SCH (22:00)
[2024-05-30] VITALS (10 sets, daily range): BP systolic 96–127; PULSE 69–105; RESP 14–20; TEMP 97.4–99.3; O2SAT 91–100
[2024-05-30] MEDS ORDERED: APIX5TAB PO (08:56)
[2024-05-30] MEDS ORDERED: BISO5TAB15 PO (08:57)
[2024-05-30] MEDS ORDERED: ALLO300T2 PO (08:58)
[2024-05-30 08:59] LABS: HEMATOCRIT 37.6 % (36-54); MEAN CORPUSCULAR HEMOGLOBIN 31 pg (27-31); MEAN CORPUSCULAR HGB CONC 32 % (32-36); MEAN CORPUSCULAR VOLUME 97 fL (79.0-98.0); PLATELET COUNT (AUTO) 142 K/uL (130-430); RED CELL DISTRIBUTION WIDTH 15.4 % (9.0-15.0)
[2024-05-30 09:05] LABS: ALANINE AMINOTRANSFERASE 14 U/L (12-78); ALBUMIN 2.9 g/dL (3.4-4.8); ANION GAP 10 (5-15); ASPARTATE AMINOTRANSFERASE 24 U/L (10-37); CALCIUM 8.1 mg/dL (8.4-11.0); CARBON DIOXIDE 26 mmol/L (23-29); CHLORIDE 109 mmol/L (98-107); CREATININE 1.86 mg/dL (0.55-1.30); GLUCOSE 128 mg/dL (74-106); POTASSIUM 4.4 mmol/L (3.5-5.1); SODIUM SERUM 145 mmol/L (136-145); THYROID STIMULATING HORMONE 1.19 uIu/mL (0.34-4.82); TOTAL BILIRUBIN 0.4 mg/dL (0.0-1.0); UREA NITROGEN, BLOOD 34 mg/dL (8-21)
[2024-05-30 09:13] LABS: WHITE BLOOD COUNT (AUTO) 14.5 K/uL (4.8-10.8)
[2024-05-30] MEDS: ALLOPURINOL 300 MG TABLET (ZYLOPRIM) PO SCH (09:44)
[2024-05-30] MEDS: SUCRALFATE 1 GM TABLET PO SCH (09:44)
[2024-05-30 09:48] LABS: INR 1.2 (0.80-1.20); PROTHROMBIN TIME 12.1 SECS (9.5-12.5)
[2024-05-30] MEDS: METOPROLOL TARTRATE 25 MG TABLET PO SCH (09:51)
[2024-05-30] MEDS: APIXABAN 2.5 MG TABLET PO SCH (09:52)
[2024-05-30] MEDS ORDERED: TERA1CAP4 PO (10:29)
[2024-05-30 12:51] LABS: ATYPICAL LYMPHOCYTES % 0 % (0-0); BAND % (MANUAL) 40 % (0-6); BASOPHILS % (MANUAL) 0 % (0-2); EOSINOPHILS % (MANUAL) 0 % (0-7); HYPOCHROMASIA 1+; LYMPHOCYTES % (MANUAL) 5 % (20-46); MONOCYTES % (MANUAL) 6 % (0-11); PLATELET ESTIMATE ADEQUATE (ADEQUATE)
[2024-05-30] MEDS ORDERED: LACT-200 PO (13:00)
[2024-05-30] MEDS: AZITHROMYCIN 500 MG in NS 250 ML IV SCH (18:02)
[2024-05-30] MEDS: DECADRON 4 MG TABLET PO SCH (18:03)
[2024-05-30 18:22] LABS: BILIRUBIN,URINE NEGATIVE (NEGATIVE); BLOOD, URINE 3+ (NEGATIVE); CLARITY/URINE CLOUDY (CLEAR); COLOR,URINE RED (YELLOW); GLUCOSE,URINE NEGATIVE (NEGATIVE); KETONES,URINE NEGATIVE (NEGATIVE); NITRITE, URINE NEGATIVE (NEGATIVE); PROTEIN URINE 2+ (NEGATIVE); UROBILINOGEN,URINE 0.2 (0.2-1.0)
[2024-05-30 18:26] LABS: LEUKOCYTE ESTERASE ,URINE NEGATIVE (NEGATIVE); RBC,URINE >100 /HPF (0-3); WBC,URINE 0-3 /HPF (0-3)
[2024-05-30 18:27] LABS: BACTERIA,URINE FEW /HPF (None Seen); MUCUS,URINE None Seen /LPF (None Seen)
[2024-05-31] VITALS (9 sets, daily range): BP systolic 117–136; PULSE 105–118; RESP 12–18; TEMP 97–98.4; O2SAT 95–100
[2024-05-31 00:37] LABS: ANION GAP 10 (5-15); CALCIUM 8.3 mg/dL (8.4-11.0); CARBON DIOXIDE 24 mmol/L (23-29); CHLORIDE 108 mmol/L (98-107); CREATININE 1.49 mg/dL (0.55-1.30); GLUCOSE 158 mg/dL (74-106); POTASSIUM 4.9 mmol/L (3.5-5.1); SODIUM SERUM 142 mmol/L (136-145); UREA NITROGEN, BLOOD 26 mg/dL (8-21)
[2024-05-31 07:33] LABS: BASOPHILS % (AUTO) 0.1 % (0.0-2.0); HEMATOCRIT 38.9 % (36-54); HEMOGLOBIN 12.2 g/dL (14.0-18.0); LYMPHOCYTES # (AUTO) 0.5 K/uL (1.0-5.5); LYMPHOCYTES % (AUTO) 3.3 % (20.5-51.5); MEAN CORPUSCULAR HEMOGLOBIN 30 pg (27-31); MEAN CORPUSCULAR HGB CONC 31 % (32-36); MEAN CORPUSCULAR VOLUME 96 fL (79.0-98.0); MONOCYTES # (AUTO) 0.2 K/uL (0.0-1.0); MONOCYTES % (AUTO) 1.2 % (1.7-9.3); NEUTROPHILS # (AUTO) 13.4 K/uL (1.8-7.7); NEUTROPHILS % (AUTO) 95.4 % (40.0-70.0); PLATELET COUNT (AUTO) 134 K/uL (130-430); RED BLOOD CELL COUNT(AUTO) 4.03 MIL/uL (4.2-6.2); RED CELL DISTRIBUTION WIDTH 15.4 % (9.0-15.0); WHITE BLOOD COUNT (AUTO) 14.1 K/uL (4.8-10.8)
[2024-06-01] VITALS (7 sets, daily range): BP systolic 111–159; PULSE 80–119; RESP 18–22; TEMP 97.6–98.7; O2SAT 96–98
[2024-06-01 07:44] LABS: ALANINE AMINOTRANSFERASE 19 U/L (12-78); ALBUMIN 2.5 g/dL (3.4-4.8); ANION GAP 7 (5-15); ASPARTATE AMINOTRANSFERASE 36 U/L (10-37); CALCIUM 8.1 mg/dL (8.4-11.0); CARBON DIOXIDE 26 mmol/L (23-29); CHLORIDE 110 mmol/L (98-107); CREATININE 1.39 mg/dL (0.55-1.30); GLUCOSE 212 mg/dL (74-106); POTASSIUM 4.1 mmol/L (3.5-5.1); SODIUM SERUM 143 mmol/L (136-145); TOTAL BILIRUBIN 0.2 mg/dL (0.0-1.0); TOTAL PROTEIN, SERUM 6.7 g/dL (6.4-8.3); UREA NITROGEN, BLOOD 29 mg/dL (8-21)
[2024-06-01 08:16] LABS: BASOPHILS % (AUTO) 0.1 % (0.0-2.0); HEMATOCRIT 35.5 % (36-54); HEMOGLOBIN 11.7 g/dL (14.0-18.0); LYMPHOCYTES # (AUTO) 0.4 K/uL (1.0-5.5); LYMPHOCYTES % (AUTO) 2.6 % (20.5-51.5); MEAN CORPUSCULAR HEMOGLOBIN 31 pg (27-31); MEAN CORPUSCULAR HGB CONC 33 % (32-36); MEAN CORPUSCULAR VOLUME 95 fL (79.0-98.0); MONOCYTES # (AUTO) 0.3 K/uL (0.0-1.0); MONOCYTES % (AUTO) 1.9 % (1.7-9.3); NEUTROPHILS # (AUTO) 15.9 K/uL (1.8-7.7); NEUTROPHILS % (AUTO) 95.4 % (40.0-70.0); PLATELET COUNT (AUTO) 138 K/uL (130-430); RED BLOOD CELL COUNT(AUTO) 3.74 MIL/uL (4.2-6.2); RED CELL DISTRIBUTION WIDTH 15.1 % (9.0-15.0); WHITE BLOOD COUNT (AUTO) 16.6 K/uL (4.8-10.8)
[2024-06-01] MEDS: METOPROLOL TARTRATE 25 MG TABLET GT ONE (14:17)
[2024-06-01] MEDS: BARICITINIB -Non-Formulary 2 MG TABLET PO ONE (14:20)
[2024-06-01] MEDS: PIPERACILLIN/TAZO 4.5 GM in D5W 100 ML IV SCH (20:27)
[2024-06-01] MEDS: METOPROLOL TARTRATE 50 MG TABLET GT SCH (20:35)
[2024-06-02] VITALS (8 sets, daily range): BP systolic 125–154; PULSE 98–115; RESP 18–26; TEMP 97.3–98.2; O2SAT 95–100
[2024-06-02 07:33] LABS: HEMATOCRIT 38.5 % (36-54); HEMOGLOBIN 12.3 g/dL (14.0-18.0); LYMPHOCYTES # (AUTO) 0.4 K/uL (1.0-5.5); LYMPHOCYTES % (AUTO) 2.9 % (20.5-51.5); MEAN CORPUSCULAR HEMOGLOBIN 31 pg (27-31); MEAN CORPUSCULAR HGB CONC 32 % (32-36); MEAN CORPUSCULAR VOLUME 95 fL (79.0-98.0); MONOCYTES # (AUTO) 0.3 K/uL (0.0-1.0); MONOCYTES % (AUTO) 2.2 % (1.7-9.3); NEUTROPHILS % (AUTO) 94.9 % (40.0-70.0); PLATELET COUNT (AUTO) 154 K/uL (130-430); RED BLOOD CELL COUNT(AUTO) 4.04 MIL/uL (4.2-6.2); RED CELL DISTRIBUTION WIDTH 15.3 % (9.0-15.0); WHITE BLOOD COUNT (AUTO) 13.7 K/uL (4.8-10.8)
[2024-06-02 08:11] LABS: ANION GAP 9 (5-15); CALCIUM 8.5 mg/dL (8.4-11.0); CARBON DIOXIDE 25 mmol/L (23-29); CHLORIDE 111 mmol/L (98-107); CREATININE 1.43 mg/dL (0.55-1.30); GLUCOSE 156 mg/dL (74-106); POTASSIUM 4.1 mmol/L (3.5-5.1); SODIUM SERUM 145 mmol/L (136-145); UREA NITROGEN, BLOOD 35 mg/dL (8-21)
[2024-06-02] MEDS: HALOPERIDOL LACTATE 5 MG/ML VIAL IM ONE (09:50)
[2024-06-02] MEDS: BARICITINIB -Non-Formulary 2 MG TABLET PO SCH (12:09)
[2024-06-02] MEDS ORDERED: DOXY100C5 PO (12:45)
== END 2024-06-02 20:35 | disposition hospice, home (50) | DRG 871 ==
LOC: SED 12:10 → STU 16:27
PROVIDERS: ADMIT Family Medicine; ATTEND Family Medicine
PROC: XW033E5 Introduction of Remdesivir Anti-infective into Peripheral Vein, Percutaneous Approach, New Technology Group 5 (ICD-10-PCS; 2024-05-30)
PROC: 0D20XUZ Change Feeding Device in Upper Intestinal Tract, External Approach (ICD-10-PCS; principal; 2024-06-02)
DX: A41.9 Sepsis, unspecified organism (principal); J12.82 Pneumonia due to coronavirus disease 2019; U07.1 COVID-19; J96.01 Acute respiratory failure with hypoxia; E44.1 Mild protein-calorie malnutrition; I48.20 Chronic atrial fibrillation, unspecified; N17.9 Acute kidney failure, unspecified; K31.6 Fistula of stomach and duodenum; T85.598A Other mechanical complication of other gastrointestinal prosthetic devices, implants and grafts, initial encounter; H91.93 Unspecified hearing loss, bilateral; I12.9 Hypertensive chronic kidney disease with stage 1 through stage 4 chronic kidney disease, or unspecified chronic kidney disease; J45.909 Unspecified asthma, uncomplicated; N18.9 Chronic kidney disease, unspecified; Z87.11 Personal history of peptic ulcer disease; Z86.73 Personal history of transient ischemic attack (TIA), and cerebral infarction without residual deficits; Z79.01 Long term (current) use of anticoagulants; Z78.9 Other specified health status; Z51.5 Encounter for palliative care; Z79.899 Other long term (current) drug therapy; Z87.891 Personal history of nicotine dependence; Z79.51 Long term (current) use of inhaled steroids; D64.9 Anemia, unspecified; Z68.23 Body mass index [BMI] 23.0-23.9, adult
CPT/HCPCS: 36415; 71045; 74240; 76770; 80048; 80053; 80076; 81000; 81001; 81015; 82550; 83605; 83735; 83880; 84443; 84484; 85007; 85025; 85027; 85379; 85610; 85730; 87040; 93005; 93306; 94070; 94640; 94760; 96375; 99291; G0378; J0456; J0696; J1200; J1630; J1644; J2405; J2543; J3490; J7050; J7060; J8540